=== PATIENT | female | born 1965 | race Caucasian/White ===

== ENCOUNTER → 2016-11-25 | Outpatient (CLI) | payer OTHER | END | disposition home or self-care (01) | LOC: CFH 14:36 | PROVIDERS: ATTEND Family Medicine | DX: Z12.31 Encounter for screening mammogram for malignant neoplasm of breast (principal) | CPT/HCPCS: G0202 ==

== ENCOUNTER 2017-02-28 09:50 | Emergency (ER) | payer OTHER ==
[~2017-02-28] VITALS: Ht 152.4 cm; Wt 84.0 kg
[2017-02-28] MEDS ORDERED: SODIUM CHLORIDE 0.9% 1,000 ML IV ONE (10:45)
[2017-02-28] MEDS ORDERED: SODIUM CHLORIDE 0.9% 1,000ML IVBOLUS ONE (11:00)
[2017-02-28] MEDS ORDERED: ACETAMINOPHEN 500 MG TABLET PO ONE (11:00)
[2017-02-28] MEDS ORDERED: FAMOTIDINE 20 MG/2 ML IVP ONE (11:00)
[2017-02-28] MEDS ORDERED: ONDANSETRON 2MG/ML, 2ML IVPush ONE (11:00)
[2017-02-28 11:03] LABS: HEMATOCRIT 42.6 % (34.6-47.8); HEMOGLOBIN 14.5 g/dL (11.7-16.4); WHITE BLOOD COUNT 8.3 x10^3/uL (3.4-10)
[2017-02-28] MEDS ORDERED: FAMOTIDINE 20 MG/2 ML ONE (11:11)
[2017-02-28] MEDS ORDERED: ONDANSETRON 2MG/ML, 2ML ONE (11:11)
[2017-02-28] MEDS ORDERED: ACETAMINOPHEN 500 MG TABLET ONE (11:11)
[2017-02-28 11:16] LABS: ASPARTATE AMINO TRANSFERASE 38 U/L (15-37); BLOOD UREA NITROGEN 9 mg/dL (7-18)
[2017-02-28] MEDS ORDERED: ALBU0.63 NEB (11:16)
[2017-02-28 11:24] LABS: PATH.CAST-FLAG NOT PRESENT; SPERM-FLAG NOT PRESENT; SRC-FLAG NOT PRESENT; XTAL-FLAG NOT PRESENT; YLC-FLAG NOT PRESENT
[2017-02-28 12:48] VITALS: BP 130/72
== END 2017-02-28 12:49 | disposition home or self-care (01) ==
LOC: ED 11:02
DX: J20.9 Acute bronchitis, unspecified (principal); B96.89 Other specified bacterial agents as the cause of diseases classified elsewhere; I10 Essential (primary) hypertension
CPT/HCPCS: 36415; 71020; 80053; 81001; 83690; 85025; 87081; 87086; 87880; 96361; 96374; 96375; 99285; J2405; J7030; S0028

== ENCOUNTER 2018-01-02 11:19 | Emergency (ER) | payer OTHER ==
[~2018-01-02] VITALS: Ht 149.9 cm; Wt 84.9 kg
[~2018-01-02 11:19] MED LIST: ALBU0.63 NEB
[2018-01-02 11:21] VITALS: BP 163/75
[2018-01-02] MEDS ORDERED: BENZONATATE 100 MG CAPSULE PO ONE (12:00)
[2018-01-02] MEDS ORDERED: SODIUM CHLORIDE 0.9% 1,000ML IVBOLUS ONE (12:00)
[2018-01-02] MEDS ORDERED: SODIUM CHLORIDE FLUSH 10ML SYR IVF ONE (12:00)
[2018-01-02] MEDS ORDERED: KETOROLAC 60 MG/2 ML IVPush ONE (12:00)
[2018-01-02 12:18] LABS: BASOPHILS # (AUTO) 0.06 x10^3/uL (0-0.1); BASOPHILS % (AUTO) 1 % (0-1); EOSINOPHILS # (AUTO) 0.28 x10^3/uL (0-0.4); EOSINOPHILS % (AUTO) 2 % (1-7); LYMPHOCYTES # (AUTO) 1.27 x10^3/uL (1-3.4); LYMPHOCYTES % (AUTO) 11 % (22-44); MD NO; MEAN CORPUSCULAR HEMOGLOBIN 28.3 pg (27.0-34.8); MEAN CORPUSCULAR HGB CONC 33.5 g/dL (32.4-35.8); MEAN CORPUSCULAR VOLUME 84.4 fL (80-100); MEAN PLATELET VOLUME 7.7 fL (7.4-10.4); MONOCYTES # (AUTO) 0.58 x10^3/uL (0.2-0.8); MONOCYTES % (AUTO) 5 % (2-9); NEUTROPHILS # (AUTO) 9.54 x10^3/uL (1.8-6.8); NEUTROPHILS % (AUTO) 81 % (42-75); PLATELET COUNT 282 x10^3/uL (130-400); RED BLOOD COUNT 5.29 x10^6/uL (3.82-5.3); RED CELL DISTRIBUTION WIDTH 13.1 % (9.6-15.2)
[2018-01-02] MEDS ORDERED: BENZONATATE 100 MG CAPSULE ONE (12:20)
[2018-01-02 12:29] LABS: ALBUMIN 3.6 g/dL (3.4-5.0); ANION GAP 10 mmol/L (5-15); CALCIUM 9.2 mg/dL (8.5-10.1); CHLORIDE 108 mmol/L (98-107); CREATININE 0.65 mg/dL (0.55-1.02)
[2018-01-02 12:33] LABS: TROPONIN I < 0.015 ng/mL (0.000-0.045)
[2018-01-02 12:50] LABS: RAPID INFLUENZA A Negative (Negative); RAPID INFLUENZA B Negative (Negative)
== END 2018-01-02 13:27 | disposition home or self-care (01) ==
LOC: ED 12:47
DX: J20.5 Acute bronchitis due to respiratory syncytial virus (principal); R11.2 Nausea with vomiting, unspecified; I10 Essential (primary) hypertension
CPT/HCPCS: 36415; 71046; 80048; 82040; 84484; 85025; 87400; 93005; 96360; 99285; J7030

== ENCOUNTER 2018-06-30 19:26 | Emergency (ER) | payer OTHER ==
[~2018-06-30] VITALS: Ht 149.9 cm; Wt 86.6 kg
[2018-06-30 20:53] LABS: BASOPHILS # (AUTO) 0.04 x10^3/uL (0-0.1); BASOPHILS % (AUTO) 1 % (0-1); EOSINOPHILS # (AUTO) 0.14 x10^3/uL (0-0.4); EOSINOPHILS % (AUTO) 2 % (1-7); LYMPHOCYTES # (AUTO) 1.66 x10^3/uL (1-3.4); LYMPHOCYTES % (AUTO) 21 % (22-44); MD NO; MEAN CORPUSCULAR HEMOGLOBIN 28.2 pg (27.0-34.8); MEAN CORPUSCULAR HGB CONC 33.5 g/dL (32.4-35.8); MEAN CORPUSCULAR VOLUME 84.3 fL (80-100); MEAN PLATELET VOLUME 7.8 fL (7.4-10.4); MONOCYTES # (AUTO) 0.49 x10^3/uL (0.2-0.8); MONOCYTES % (AUTO) 6 % (2-9); NEUTROPHILS # (AUTO) 5.64 x10^3/uL (1.8-6.8); NEUTROPHILS % (AUTO) 71 % (42-75); PLATELET COUNT 303 x10^3/uL (130-400); RED BLOOD COUNT 5.27 x10^6/uL (3.82-5.3); RED CELL DISTRIBUTION WIDTH 12.9 % (9.6-15.2)
--- NOTE | 2018-06-30 20:56 | NUR ---
REPORT RECEIVED FROM JYOTHI RICHARDS.
[2018-06-30 20:59] LABS: ALANINE AMINOTRANSFERASE 50 U/L (12-78); ALBUMIN 3.8 g/dL (3.4-5.0); ANION GAP 6 mmol/L (5-15); CALCIUM 8.8 mg/dL (8.5-10.1); CHLORIDE 110 mmol/L (98-107); CREATININE 0.69 mg/dL (0.55-1.02)
--- NOTE | 2018-06-30 21:00 | NUR ---
FIRST CONTACT WITH PT. PT C/O LRQ PAIN 2 WEEKS INTERMITTENT WORSE W/ EATING. +N/V. PT'S AOX4. RESPS EVEN AND UNLABORED. PRIMARY LANGUAGE IS GREEK. PT'S AOX4. RESPS EVEN AND UNLABORED.
[2018-06-30 21:01] LABS: ALKALINE PHOSPHATASE 145 U/L (45-117); BILIRUBIN,TOTAL 0.8 mg/dL (0.2-1.0); TOTAL PROTEIN 8.1 g/dL (6.4-8.2)
--- NOTE | 2018-06-30 21:15 | NUR ---
PT AMB TO BR AND BACK TO ROOM WITH STEADY GAIT. UA SENT.
--- NOTE | 2018-06-30 21:23 | NUR ---
EDMD AT BEDSIDE TO ASSESS AT THIS TIME.
[2018-06-30 21:34] LABS: MICROSCOPIC NOT IND
[2018-06-30 21:39] LABS: CULTURE INDICATED? NO
[2018-06-30] MEDS ORDERED: MAALOX/HYOSCYAMINE/LIDOCAINE 45 ML BTL ONE (21:42)
[2018-06-30] MEDS ORDERED: ONDANSETRON ODT 4 MG ONE (21:42)
--- NOTE | 2018-06-30 21:49 | NUR ---
PT MEDICATED PER EMAR. PT TOLERATED WELL. PT'S AOX4. RESPS EVEN AND UNLABORED.
[2018-06-30] MEDS ORDERED: ONDANSETRON ODT 4 MG PO ONE (22:00)
[2018-06-30] MEDS ORDERED: MAALOX/HYOSCYAMINE/LIDOCAINE 45 ML BTL PO ONE (22:00)
[2018-06-30 22:34] VITALS: BP 152/68
--- NOTE | 2018-06-30 22:34 | NUR ---
PT GIVEN DC INSTRUCTIONS AND SCRIPTS. PT'S AOX4. RESPS EVEN AND UNLABORED. NO ACUTE DISTRESS AT DC.
== END 2018-06-30 22:34 | disposition home or self-care (01) ==
LOC: ED 21:13
DX: R10.12 Left upper quadrant pain (principal); R11.2 Nausea with vomiting, unspecified; R19.7 Diarrhea, unspecified; K21.9 Gastro-esophageal reflux disease without esophagitis; I10 Essential (primary) hypertension; J45.909 Unspecified asthma, uncomplicated
CPT/HCPCS: 36415; 76700; 80053; 81003; 83690; 85025; 99284; Q0162